=== PATIENT | male | born 1990 | race Caucasian/White ===

== ENCOUNTER 2021-04-17 12:55 | Emergency (ER) | payer BC ==
[2021-04-17 13:09] VITALS: BP 121/94; PULSE 93
--- NOTE | 2021-04-17 13:27 | EDM.PDOC ---
ED HPI GENERAL MEDICAL PROBLEM - General Chief Complaint: Lower Extremity Injury/Pain Stated Complaint: [facility] Time Seen by Provider: 04/17/21 13:10 Source of Information: Reports: Patient, RN Notes Reviewed History Limitations: Reports: No Limitations - History of Present Illness INITIAL COMMENTS - FREE TEXT/NARRATIVE: Patient is a 30-year-old male who presents to the ER for the evaluation of his right knee pain. He was brought to the ER by [facility]. He was given 100 mcg fentanyl in route to the ER for his knee pain. States he was at a softball tournament, when he stepped in a patch of sand near the base, and he fell down, and he states his knee "went the other way" he is having some pain to his anterior mid knee. Does state that he has had issues with ACL's in the past. He can still move his toes in all range of motion, however he states he is not been able to move his knee much at all due to the pain. Patient denies any other sick-like symptoms, fever/chills, cough/shortness of breath, nausea/vomiting/diarrhea. Right Knee Pain Score (Numeric/FACES): 7 - Related Data Allergies Allergy/AdvReac Type Severity Reaction Status Date / Time No Known Allergies Allergy Verified 10/29/15 10:47 Home Meds: Home Meds Cedar-3/DHA/Epa/Fish Oil [Cedar 3 500 Softgel] 1 tab PO DAILY 10/28/15 [History] traMADol HCl [Ultram] 1 - 2 tab PO Q6H PRN #20 tablet 10/28/15 [Rx] Hydrocodone/Acetaminophen [Hydrocodone-Acetamin 5-325 mg] 1 each PO Q6H PRN #20 tablet 04/17/21 [Rx] Past Medical History HEENT History: Reports: Other (See Below) Other HEENT History: wisdom teeth extraction Psychiatric History: Reports: Other (See Below) Other Psychiatric History: motion sickness Hx Review of Systems - Review of Systems Review Of Systems: Comprehensive ROS is negative, except as noted in HPI. ED EXAM, GENERAL - Physical Exam Exam: See Below Exam Limited By: No Limitations General Appearance: Alert, WD/WN, No Apparent Distress Respiratory/Chest: No Respiratory Distress, Lungs Clear, Normal Breath Sounds, No Accessory Muscle Use, Chest Non-Tender Cardiovascular: Normal Peripheral Pulses, Regular Rate, Rhythm, No Edema Peripheral Pulses: 2+: Dorsalis Pedis (L), Dorsalis Pedis (R) Extremities: Normal Capillary Refill, Limited Range of Motion (of right knee d/t pain), Other (pt does have quite a bit of tenderness to his anterior knee at patella, There is also exquisite tenderness superior to the patella.) Neurological: Alert, Oriented, Normal Cognition, No Motor/Sensory Deficits Psychiatric: Normal Affect, Normal Mood Skin Exam: Warm, Dry, Intact, Normal Color, No Rash Course - Vital Signs Last Recorded V/S: Last Vital Signs Temp 97.7 F 04/17/21 13:03 Pulse 93 04/17/21 13:03 Resp 18 04/17/21 13:03 BP 121/94 H 04/17/21 13:03 Pulse Ox 95 04/17/21 13:03 - Orders/Labs/Meds Orders: Active Orders 24 hr Category Date Time Status Knee Min 4V Rt [CR] Stat Exams 04/17/21 13:18 Taken - Re-Assessments/Exams Free Text/Narrative Re-Assessment/Exam: 04/17/21 13:27 Patient presents to the ER for his right knee injury, go ahead and get x-rays of the area for further evaluation. 04/17/21 13:45 X-rays have been taken, and they are suspicious for inferior patellar tendon disruption. The patella is located anteriorly, over the distal end of the femur. Official radiology read is still pending however. 04/17/21 14:01 I did go over the x-rays with Dr. Braswell, and he had going to evaluate the patient with me, and he does clinically think that the gentleman does have an inferior patella tendon disruption. We will go ahead and get him in a knee immobilizing brace to stabilize the injury and prevent further injury, get him on crutches for nonweightbearing, get outpatient MRI order, get him some pain meds for the next few days. He will need to follow-up with Dr. Orellana, patient verbalized understanding. Departure - Departure Time of Disposition: 14:02 Disposition: Home, Self-Care 01 Condition: Good Clinical Impression: Patellar tendon rupture Qualifiers: Encounter type: initial encounter Laterality: right Qualified Code(s): S86.811A - Strain of other muscle(s) and tendon(s) at lower leg level, right leg, initial encounter - Discharge Information *PRESCRIPTION DRUG MONITORING PROGRAM REVIEWED*: Yes *COPY OF PRESCRIPTION DRUG MONITORING REPORT IN PATIENT SANDY: No Prescriptions: Hydrocodone/Acetaminophen [Hydrocodone-Acetamin 5-325 mg] 1 each PO Q6H PRN #20 tablet PRN Reason: Pain Instructions: Acute Knee Pain, Adult, [id number] Referrals: Anant Orellana MD [Physician] - 1 Week (possible R inferior patellar tendon disruption) Forms: ED Department Discharge Additional Instructions: You have been evaluated in the ED for your right knee pain/injury. Your x-ray demonstrated no acute fracture or other bony abnormality, but your exam is suspicious for inferior patellar tendon disruption. This will need surgical management. An outpatient MRI order has been provided on your behalf, our x-ray department will call you to schedule this appointment, they state that you could likely get an appointment on Monday but he was not sure of the scheduling needs/constraints at this time. Please call the hospital at [phone] early Monday to see if they can get you in Monday afternoon or early Monday. Please use ice as tolerated to the affected area. You may elevate the affected area to provide further relief from swelling. You have been provided with a brace, to prevent further injury and/or stabilize the injury you received today. Also have been provided with crutches to keep nonweightbearing until you can be evaluated by orthopedics. You may take Tylenol 500 mg or ibuprofen 600mg q6 hrs for pain relief. Please do so until you have a tolerable level of pain with activity. Do not exceed 4000mg Tylenol, Do not exceed 3200mg ibuprofen in a 24 hour time period. You were given a prescription for a strong pain medication, hydrocodone/acetaminophen 5/325, please take 1 tab every 6 hours as needed for pain not relieved by Tylenol or ibuprofen alone. Please note this does contain Tylenol in it, so do not take more than 4000 mg in a 24-hour time span. These medications can be addictive, so please take as few as possible to achieve adequate pain control. These meds can also be quite constipating, recommend that you increase your oral fluid intake and take a stool softener like MiraLAX while taking these medications. This medication was electronically sent to the [place] pharmacy located in the [facility] grocery store. Please call Ortho for follow-up and further evaluation Dr. Orellana is our orthopedic surgeon, his office number is [phone]. Please call and set up an appointment as soon as possible for further management. Please return to ED if your symptoms should change or worsen. Sepsis Event Note (ED) - Evaluation Sepsis Screening Result: No Definite Risk - Focused Exam Vital Signs: Vital Signs Temp Pulse Resp BP Pulse Ox 04/17/21 13:03 97.7 F 93 18 121/94 H 95 - My Orders Last 24 Hours: My Active Orders 04/17/21 13:18 Knee Min 4V Rt [CR] Stat - Assessment/Plan Last 24 Hours: My Active Orders 04/17/21 13:18 Knee Min 4V Rt [CR] Stat
--- NOTE | 2021-04-17 14:14 | CR ---
Right knee: 4 views of the right knee were obtained. Comparison: No previous right knee exam is available. No joint effusion is seen. Medial and lateral joint compartments are maintained in height. Patella may be located slightly superior, please exclude any injury to the patellar ligament. No fracture or other bony abnormality is appreciated. Impression: 1. Possible patellar ligament injury, please correlate. 2. Right knee exam is otherwise unremarkable. Diagnostic code #3
== END 2021-04-17 14:36 | disposition home or self-care (01) ==
LOC: JD.ED 12:55
DX: S86.811A Strain of other muscle(s) and tendon(s) at lower leg level, right leg, initial encounter (principal); X58.XXXA Exposure to other specified factors, initial encounter
CPT/HCPCS: 73564-26-RT; 73564-RT; 99283; 99283-25

== ENCOUNTER 2021-04-29 08:18 | Day surgery (SDC) | payer BC ==
[~2021-04-29 08:18] MED LIST: Dexamethasone 4 MG/ML 5 ML MDV ONE; Dexmedetomidine 200 MCG/2 ML SDV ONE; EPINEPHrine 1 MG/ML SDV ONE; Lactated Ringers 1,000 ML IV SCH; Lidocaine 1%/Sod Bicarbonate in NS 8.4% 1 ML Syringe IDERM PRN; Lidocaine 2% with EPINEPHrine 1:200,000 20 ML SDV ONE; Ropivacaine 0.5% 5 MG/ML 30 ML SDV ONE; Sodium Bicarbonate 8.4% 50 MEQ/50 ML SDV ONE; Sodium Chloride 0.9% 10 ML Syringe FLUSH PRN
[2021-04-29] MEDS ORDERED: Vancomycin 1 GM, Vancomycin 500 MG in Sodium Chloride 0.9% 500 ML IV ONE (08:30)
[2021-04-29] MEDS ORDERED: Bupivacaine 0.25% 10 ML SDV ONE ×2 (09:23→11:55)
[2021-04-29] MEDS ORDERED: Midazolam 1 MG/ML 2 ML SDV ONE (09:26)
[2021-04-29] MEDS ORDERED: fentaNYL 100 MCG/2 ML SDV ONE (09:26)
--- NOTE | 2021-04-29 11:11 | PCM.PREANE ---
Preanesthetic Assessment - Procedure Proposed Procedure: Right patellar tendon repair - Anesthesia/Transfusion/Family Hx Anesthesia History: Prior Anesthesia Without Reaction Transfusion History: No Prior Transfusion(s) - Review of Systems General: No Symptoms Pulmonary: No Symptoms Cardiovascular: No Symptoms Gastrointestinal: No Symptoms Neurological: No Symptoms Other: Reports: Depression, Anxiety - Physical Assessment NPO Status Date: 04/28/21 NPO Status Time: 21:00 Vital Signs: Last Vital Signs Temp 98.2 F 04/29/21 08:30 Pulse 77 04/29/21 08:30 Resp 16 04/29/21 08:30 BP 139/78 04/29/21 08:30 Pulse Ox 96 04/29/21 08:30 Height: 1.78 m Weight: 108.3 kg ASA Class: 2 Mental Status: Alert & Oriented x3 Airway Class: Mallampati = 3 Dentition: Reports: Normal Dentition Thyro-Mental Finger Breadths: 3 Mouth Opening Finger Breadths: 3 ROM/Head Extension: Full Lungs: Clear to Auscultation, Normal Respiratory Effort Cardiovascular: Regular Rate, Regular Rhythm - Allergies Allergies/Adverse Reactions: Allergies Allergy/AdvReac Type Severity Reaction Status Date / Time No Known Allergies Allergy Verified 04/29/21 08:14 - Acknowledgements Anesthesia Type Planned: General Anesthesia, Regional Block, MAC Pt an Appropriate Candidate for the Planned Anesthesia: Yes Alternatives and Risks of Anesthesia Discussed w Pt/Guardian: Yes Pt/Guardian Understands and Agrees with Anesthesia Plan: Yes PreAnesthesia Questionnaire - Past Health History Medical/Surgical History: Denies Medical/Surgical History HEENT History: Reports: Other (See Below) Other HEENT History: wisdom teeth extraction Psychiatric History: Reports: Depression Other Psychiatric History: motion sickness Hx - Past Surgical History HEENT Surgical History: Reports: Other (See Below) Other HEENT Surgeries/Procedures: [place] Teeth Extraction Musculoskeletal Surgical History: Reports: Carpal Tunnel, Other (See Below) Other Musculoskeletal Surgeries/Procedures:: Bilateral CTR () - SUBSTANCE USE Tobacco Use Status *Q: Never Tobacco User Recreational Drug Use History: No - HOME MEDS Home Medications: Home Meds lamoTRIgine [Lamotrigine ER] 100 tab PO DAILY 04/17/21 [History] Aspirin [Aspirin EC] 325 mg PO BID #84 tab 04/28/21 [Rx] traMADol [Ultram] 50 - 100 mg PO Q4H PRN #30 tab 04/28/21 [Rx] - CURRENT (IN HOUSE) MEDS Current Meds: Current Medications Lactated Ringer's (Ringers, Lactated) 1,000 mls @ 125 mls/hr IV ASDIRECTED KAMALA Stop: 04/29/21 23:00 Last Admin: 04/29/21 08:36 Dose: 125 mls/hr Documented by: Lidocaine/Sodium Bicarbonate (Lidocaine 1%/Sod Bicarbonate In Ns 8.4% 1 Ml Syringe) 0.25 ml IDERM ONETIME PRN PRN Reason: Prior to IV Start Stop: 04/29/21 18:00 Last Admin: 04/29/21 08:36 Dose: 0.25 ml Documented by: Sodium Chloride (Sodium Chloride 0.9% 10 Ml Syringe) 10 ml FLUSH ASDIRECTED PRN PRN Reason: Keep Vein Open Stop: 04/29/21 18:00 Discontinued Medications Bupivacaine HCl (Bupivacaine 0.25% 10 Ml Sdv) Confirm Administered Dose 10 ml .ROUTE .STK-MED ONE Stop: 04/29/21 09:24 Dexamethasone (Dexamethasone 4 Mg/Ml 5 Ml Mdv) Confirm Administered Dose 20 mg .ROUTE .STK-MED ONE Stop: 04/29/21 08:13 Dexmedetomidine HCl (Dexmedetomidine 200 Mcg/2 Ml Sdv) Confirm Administered Dose 200 mcg .ROUTE .STK-MED ONE Stop: 04/29/21 08:09 Epinephrine HCl (Epinephrine 1 Mg/Ml Sdv) Confirm Administered Dose 1 mg .ROUTE .STK-MED ONE Stop: 04/29/21 08:10 Fentanyl (Fentanyl 100 Mcg/2 Ml Sdv) Confirm Administered Dose 100 mcg .ROUTE .STK-MED ONE Stop: 04/29/21 09:27 Vancomycin HCl 1 gm/Vancomycin HCl 500 mg/ Sodium Chloride 500 mls @ 250 mls/hr IV ONETIME ONE Stop: 04/29/21 10:29 Lidocaine/Epinephrine (Lidocaine 2% With Epinephrine 1:200,000 20 Ml Sdv) Confirm Administered Dose 20 ml .ROUTE .STK-MED ONE Stop: 04/29/21 08:11 Midazolam HCl (Midazolam 1 Mg/Ml 2 Ml Sdv) Confirm Administered Dose 6 mg .ROUTE .STK-MED ONE Stop: 04/29/21 09:27 Ropivacaine (Ropivacaine 0.5% 5 Mg/Ml 30 Ml Sdv) Confirm Administered Dose 30 ml .ROUTE .STK-MED ONE Stop: 04/29/21 08:09 Sodium Bicarbonate (Sodium Bicarbonate 8.4% 50 Meq/50 Ml Sdv) Confirm Administered Dose 50 meq .ROUTE .STK-MED ONE Stop: 04/29/21 08:11
[2021-04-29] MEDS ORDERED: Propofol 200 MG/20 ML SDV ONE ×3 (11:20→12:11)
[2021-04-29] MEDS ORDERED: ceFAZolin 1 GM Vial ONE (11:26)
[2021-04-29] MEDS ORDERED: Ondansetron 4 MG/2 ML SDV ONE (11:56)
--- NOTE | 2021-04-29 12:27 | PCM.PRNOTE ---
- Free Text/Narrative Note: Postoperative regional pain control requested by surgeon. Pre-op Dx: Rt patellar tendon rupture Post-op Rx: Rt patellar tendon repair Procedure: Rt Femoral nerve block with U/S guidance and nerve stimulator Requesting surgeon: Dr. Anant Bustillos Risks and benefits discussed with the patient including Rt. leg weakness x 24 hrs., block failure, groin pain. Permit signed. Patient in preoperative room, stable , alert and awake. Time out performed. Oxygen 3L via NC. Right groin area was prepped with Chloraprep x 1 and allowed to dry. Midazolam IV 4 mg given, followed by 100 mcg of Fentanyl. Local infiltration with 2 cc of 1% Lidocaine. The [facility] femoral nerve and artery were identified under ultrasound prior to needle insertion. 2" Stimuplex needle #22 G was inserted under US guidance. Needle penetration through fascia disha and fascia iliaca observed. Quadriceps femoris muscle response with patellar twitch obtained at 0.6 mA with nerve stimulation. Under direct visualization of needle tip the injection in divided doses maintaining negative aspiration was completed without problems. No local anesthetic toxicity was noted. Medication injected: 2% Lidocaine PF with 1:200k epi with 1 cc of Sodium Bicarbonate (total of 10 ml) followed by 0.5% Ropivacaine with 1:200,000 epinephrine with added 6 mg of Dexamethasone and 40 mcg of Dexmedetomidine (total of 20 mls) Patient is awake, stable and tolerated the procedure well. (Upon arrival to OR another 2 mg of Midazolam added, to a total of 6 mg.) Please see the attached U/S images Time: 10:29 - 10:41
[2021-04-29] MEDS ORDERED: HYDROmorphone 0.5 MG/0.5 ML Syringe IVPUSH PRN (12:28)
[2021-04-29] MEDS ORDERED: fentaNYL 100 MCG/2 ML SDV IVPUSH PRN (12:28)
--- NOTE | 2021-04-29 12:43 | CR ---
Right knee: 2 fluoroscopic spot views were obtained of the right knee. Comparison: Prior right knee radiographic study of 04/17/21 and right knee MRI of 04/19/21. Lateral view shows [address] involving the patella. Fluoroscopy time is given as 9.7 seconds. Impression: 1. Procedural study as noted above. Diagnostic code #2
[2021-04-29] MEDS ORDERED: traMADol 50 MG Tab PO ONE (14:13)
[2021-04-29 14:39] VITALS: BP 123/61; PULSE 69
--- NOTE | 2021-04-29 14:49 | PCM48HPAN ---
Post Anesthesia Note - EVALUATION WITHIN 48HRS OF ANESTHETIC Vital Signs in Normal Range: Yes Patient Participated in Evaluation: Yes Respiratory Function Stable: Yes Airway Patent: Yes Cardiovascular Function Stable: Yes Hydration Status Stable: Yes Pain Control Satisfactory: Yes Nausea and Vomiting Control Satisfactory: Yes Mental Status Recovered: Yes Vital Signs: Last Vital Signs Temp 98.1 F 04/29/21 14:38 Pulse 69 04/29/21 14:38 Resp 16 04/29/21 14:38 BP 123/61 04/29/21 14:38 Pulse Ox 95 04/29/21 14:38 - COMMENTS/OBSERVATIONS Free Text/Narrative:: Preparing for discharge home
--- NOTE | 2021-05-13 08:38 | PCM.OPNOTE ---
- General Post-Op/Procedure Note Date of Surgery/Procedure: 04/29/21 Operative Procedure(s): right knee patellar tendon rupture primary repair Pre Op Diagnosis: right knee patellar tendon rupture Post-Op Diagnosis: Same Anesthesia Technique: MAC, Regional Block Primary Surgeon: Anant Orellana Anesthesia Provider: Alexsander Daniel Staffing Clerk: Tiffanie Gonzalez EBElva in mLs: 10 Complications: None Condition: Good
--- NOTE | 2021-05-13 09:12 | OR ---
DATE OF OPERATION: 04/29/2021 SURGEON: Anant Orellana MD OPERATION PERFORMED: Right knee patellar tendon rupture, primary repair. PREOPERATIVE DIAGNOSIS: Right knee patellar tendon rupture. POSTOPERATIVE DIAGNOSIS: Right knee patellar tendon rupture. ANESTHESIA: MAC with regional femoral block. ANESTHESIA PROVIDER: Eugenio Prieto. AVIATION MAINTENANCE TECHNICIAN: Tiffanie Gonzalez PA-C. ESTIMATED BLOOD LOSS: 10 mL. COMPLICATIONS: None. CONDITION: Stable. DESCRIPTION OF PROCEDURE: The patient was identified in the preoperative holding area. Proper site was marked and identified by surgeon. The patient was taken back to the operative theatre, where after adequate anesthesia the patient's right lower extremity had a nonsterile tourniquet applied, and was then sterilely prepped and draped in the usual sterile fashion. OR time-out was performed. Patient received 2 g IV Ancef. Right lower extremity was exsanguinated. Tourniquet was insufflated to 250 mmHg. Standard anterior incision over the patella as well as patellar tendon was then done. This was taken down to the peritenon. The tear was identified. Paratenon was opened over the patellar tendon. The ends of the patella as well as the tear were rongeured off any nonviable tissue. Saline was irrigated through the joint. At this time, a #5 FiberWire suture was whipstitched by modified Sara stitch through the patellar tendon. At this time, 2 large K-wires were placed in a retrograde fashion from the inferior pole to the superior pole of the patella. Hewson suture passer was then used to bring the #5 FiberWire through the patella. C-arm fluoroscopy was utilized making sure that was just near the subchondral surface and was not intra- articular. At this time, the 2 ends were brought to the superior pole of the patella. Tension was held and this was then tied at the superior pole of the patella. The patient had good watertight repair of the patellar tendon rupture. At this time, another #5 FiberWire was used for [id number] stitches starting on the medial side going towards the lateral side, making sure not to over tension the lateral side or patellar maltracking. It had adequate watertight repair of patellar tendon rupture. At this time, adequate saline was irrigated through the wound. 2-0 Vicryl was used subcutaneously, and Prineo was used for closure of the skin. The patient had a sterile soft dressing applied as well as a hinged knee brace locked in extension, was sent to the PACU in stable condition. MMBARBRA /[id number]
== END 2021-04-29 14:55 | disposition home or self-care (01) ==
LOC: JD.SDS 08:18
PROVIDERS: ATTEND Orthopaedic Surgery
DX: S86.811A Strain of other muscle(s) and tendon(s) at lower leg level, right leg, initial encounter (principal); F17.210 Nicotine dependence, cigarettes, uncomplicated; X58.XXXA Exposure to other specified factors, initial encounter
CPT/HCPCS: 27380; 76000; A9270; J0171; J0690; J1100; J2250; J2405; J2704; J2795; J3010; J3370; J3490; J7040; J7120; 01320; 64447; 76942